=== PATIENT | female | born 1950 | race Caucasian/White ===

== ENCOUNTER → 2016-07-13 | Outpatient (CLI) | payer MEDICARE ==
--- NOTE | 2016-07-13 09:55 | KCIC ---
MR LUMBAR SPINE HISTORY:Reason For StudyReason: RADICULOPATHY LUMBOSACRAL REGION / Spl. Instructions: / History: Bilateral leg pain and cramping for about 1 yr, worsening. COMPARISON: None Technique: Sagittal T2, sagittal STIR, and sagittal T1-weighted images were obtained. Additional axial T1 and T2 weighted imaging was also performed. FINDINGS: Alignment and curvature are within normal limits. No compression deformity is identified. Overall bone marrow signal is within normal limits. The conus terminates normally at the level of T12-L1. Visualized intra-abdominal contents are within normal limits. At L5-S1 there is moderate disc height loss with left foraminal extension of a disc protrusion but no significant spinal stenosis. At L4-L5 there is moderate disc height loss and a broad-based disc protrusion. This causes mild neural foraminal narrowing. At L3-L4 there is mild disc height loss but no spinal stenosis. Impression: - There is mild to moderate degenerative disc disease of the lower lumbar spine but no high-grade central spinal or neural foraminal stenosis. Details as above. Electronically signed by: Lv No (Jul 13, 2016 09:54:48)
== END | disposition home or self-care (01) ==
LOC: KCIC MRI 07:54
PROVIDERS: ATTEND Family Medicine
DX: M51.36 Other intervertebral disc degeneration, lumbar region (principal); M51.26 Other intervertebral disc displacement, lumbar region
CPT/HCPCS: 72148

== ENCOUNTER → 2018-12-21 | Outpatient (CLI) | payer OTHER ==
[2018-12-19 21:20] VITALS: BP 148/81
[~2018-12-21] MED LIST: CEPH-264 PO; CYCL10TA2 PO; HYDR-3164 PO; ONDA4TAB12 PO
--- NOTE | 2018-12-21 12:46 | KCIC ---
Examination: CT left foot without contrast HISTORY: History of nondisplaced fractures, swelling, discoloration COMPARISON: None available Technique: Axial CT images of the left foot was performed without contrast. Coronal and sagittal reformats are performed. Exposure: One or more of the following individualized dose reduction techniques were utilized for this examination: 1. Automated exposure control 2. Adjustment of the mA and/or kV according to patient size 3. Use of iterative reconstruction technique FINDINGS: There is nondisplaced fracture of the base of the first metatarsal, second, third, fourth metatarsals. The fractures of the first, third and the fourth metatarsal extend to the tarsometatarsal joints. The fourth and third metatarsal fractures appear comminuted. The alignment of the metatarsophalangeal joints, interphalangeal joints grossly appears unremarkable The alignment of the tarsal bones grossly appears unremarkable. No significant widening of the Lisfranc joint is evident, however Lisfranc ligament evaluation is limited Mild soft tissue swelling identified in the dorsum of the foot. Small posterior and inferior calcaneal enthesophyte identified. IMPRESSION: 1. Nondisplaced fractures of the first, second, third and fourth metatarsals as described above. Evaluation of the Lisfranc ligament is limited recommend MRI for further evaluation. Electronically signed by: Salazar Comer MD (12/21/2018 12:43 PM) [id number]
== END | disposition home or self-care (01) ==
LOC: KCIC CT 10:11
PROVIDERS: ATTEND Orthopaedic Surgery Sports Medicine
DX: S92.315A Nondisplaced fracture of first metatarsal bone, left foot, initial encounter for closed fracture (principal); S92.325A Nondisplaced fracture of second metatarsal bone, left foot, initial encounter for closed fracture; S92.335A Nondisplaced fracture of third metatarsal bone, left foot, initial encounter for closed fracture; S92.345A Nondisplaced fracture of fourth metatarsal bone, left foot, initial encounter for closed fracture; X58.XXXA Exposure to other specified factors, initial encounter; Y93.89 Activity, other specified; Y92.89 Other specified places as the place of occurrence of the external cause; Y99.8 Other external cause status
CPT/HCPCS: 73700